=== PATIENT | male | born 1970 | race Caucasian/White ===

== ENCOUNTER 2019-03-07 13:56 | Emergency (ER) | payer OTHER ==
[~2019-03-07] VITALS: Ht 175.3 cm; Wt 155.8 kg
--- OUTSIDE RECORDS SUMMARY | 2019-03-07 13:59 | XMS REPORT | Clinical Summary ---
Author Author Dave Ordaz Organization [facility] Address Unknown Phone Unavailable Care Team Providers Care Osha Inspector Name Role Phone PCP Unavailable Allergies Not on File Medications Not on file Active Problems Not on file Social History Date Tobacco Use Types Packs/Day Years Used Never Assessed Sex Assigned at Date Recorded Not on file Industry Job Start Date Occupation Not on file Not on file Not on file Travel End Travel History Travel Start No recent travel history available. Last Filed Vital Signs Not on file Plan of Treatment Health Maintenance Due Date Last Done Comments INFLUENZA VACCINE 06/20/2019 Results Not on fileafter 03/06/2018 Advance Directives Patient has advance care planning documents on file. For more information, richie bradford contact: Dave Ordaz [address] [place] [address]
[2019-03-07] MEDS ORDERED: CLONIDINE HCL 0.2 MG TAB PO ONE (14:15)
--- NOTE | 2019-03-07 15:34 | Diagnostic Imaging Report ---
EXAMINATION: CXR 2 VIEW - HOPD INDICATION: Shortness of breath. COMPARISON: None FINDINGS: The lateral view is limited secondary to technique. TUBES and LINES: None. LUNGS: Lungs are well inflated. Lungs are clear. There is no evidence of pneumonia or pulmonary edema. PLEURA: No pleural effusion or pneumothorax. HEART AND MEDIASTINUM: The cardiomediastinal silhouette is unremarkable. BONES AND SOFT TISSUES: Dextroconvex curvature of the thoracic spine. There is possible mild vertebral body height loss in the mid thoracic spine. UPPER ABDOMEN: No free air under the diaphragm. IMPRESSION: Clear lungs. Possible mild vertebral body height loss in the thoracic spine. Suggest correlation for point tenderness at this location. Dedicated thoracic radiographs may be considered for further evaluation. Signed by: Dr. Beth Karimi MD on 03/07/2019 3:30 PM
[2019-03-07 15:35] VITALS: BP 120/92
== END 2019-03-07 15:33 | disposition home or self-care (01) ==
LOC: FSED 13:56
DX: R06.09 Other forms of dyspnea (principal); J44.9 Chronic obstructive pulmonary disease, unspecified; I10 Essential (primary) hypertension
CPT/HCPCS: 71046; 80053; 82553; 84484; 85025; 85379; 93005; 99284

== ENCOUNTER 2022-05-16 17:11 | Emergency (ER) | payer OTHER ==
[~2022-05-16] VITALS: Ht 175.3 cm; Wt 155.6 kg
[2022-05-16] MEDS ORDERED: ASPIRIN325 MG PO (18:50)
== END 2022-05-16 19:08 | disposition home or self-care (01) ==
LOC: ER 17:14
DX: I83.812 Varicose veins of left lower extremity with pain (principal)
CPT/HCPCS: 93971; 99283